=== PATIENT | male | born 1965 | race Caucasian/White ===

== ENCOUNTER 2017-07-03 09:39 | Day surgery (SDC) | payer MEDICAID ==
--- NOTE | 2017-07-01 13:26 | HP ---
HISTORY OF PRESENT ILLNESS: The patient is a 52 year-old iron deficiency anemia, some dark stools, no prior colonoscopy, anemia, and he is up for lower endoscopy to rule out upper and lower GI source. PAST MEDICAL HISTORY: Denies any chronic illnesses although he has had some hypertension. MEDICATIONS: Celexa, Lunesta, Lyrica, iron, high blood pressure medication as well as BuSpar. PAST SURGICAL HISTORY: He has had hernia surgery x2 in the past. FAMILY HISTORY: Cancer and hypertension. ALLERGIES: No known drug allergies. SOCIAL HISTORY: A pack a day smoker. Denies alcohol abuse. REVIEW OF SYSTEMS: Twelve systems reviewed. No chest pain or palpitations. Other systems negative or noncontributory as noted above per admission questionnaire. PHYSICAL EXAMINATION: GENERAL: No acute distress. HEENT: Sclerae nonicteric. NECK: No JVD. CHEST: Equal excursions, nonlabored breathing. CARDIOVASCULAR: Regular rhythm. ABDOMEN: Soft, no peritoneal signs. EXTREMITIES: No significant edema. NEURO: Alert, moving extremities symmetrically, no gross motor deficits noted. IMPRESSION: Iron deficiency anemia unclear etiology, rule out upper or lower GI source. [place] the patient needs EGD, colonoscopy, further evaluation. He was shown the risk sheet, explained the procedure in detail not limited to bleeding, infection, small risk of bowel injury, perforation, possibly requiring open procedure, small risk of missed or non-diagnosis, or incomplete exam possibly requiring barium enema or other studies or procedures. General risk of sedation or anesthesia, general risk of bowel prep, postop risk of nausea or cramping, but not limited to. He understands, agrees to the plan of procedure. We will proceed with outpatient EGD, colonoscopy.
[~2017-07-03 09:39] MED LIST: Lactated Ringers 1,000 ML IV ONE; Lactated Ringers 1,000 ML IV SCH
[2017-07-03] MEDS ORDERED: Ketamine HCl 50 MG/ML IV ONE (09:40)
[2017-07-03] MEDS ORDERED: DIPRIVAN 200 MG/20 ML IV ONE (09:40)
[2017-07-03] MEDS ORDERED: Lactated Ringers 1,000 ML IV ONE (11:21)
[2017-07-03 12:17] VITALS: BP 151/76; PULSE 64; O2SAT 95
--- NOTE | 2017-07-03 13:33 | OP ---
SURGERY DATE/TIME: 07/03/2017 1011 PREOPERATIVE DIAGNOSES: Anemia unclear etiology. POSTOPERATIVE DIAGNOSES: 1) Erosive gastritis. 2) Hiatal hernia. 3) Distal descending colon polyp. 4) Small raised lesion sigmoid and rectum. 5) Diverticulosis. 6) Internal and external hemorrhoids. PROCEDURES: 1) EGD with cold biopsy of the antrum to evaluate for Helicobacter pylori. 2) Cold biopsy mid gastric body inflammation, enlarging of erosive gastritis. 3) Colonoscopy to terminal ileum. 4) Retrograde ileoscopy. 5) Hot snare polypectomy descending colon polyp with ink spot tattooing of location distal descending colon versus proximal sigmoid colon marked with ink spot tattooing, removed with hot snare polypectomy. 6) Hot biopsy removal of small raised lesion sigmoid colon. 7) Hot biopsy removal of small raised rectal lesion versus hyperplastic lesion, path pending. SURGEON: Dr. Boni Corcoran. ANESTHESIA: MAC. ESTIMATED BLOOD LOSS: Minimal. INDICATIONS: As noted above. Risks and benefits explained in detail and not limited to and consent obtained. DESCRIPTION OF PROCEDURE AND FINDINGS: The patient is taken to the operating room. After official time out and no disagreement with planned procedure and once anesthesia was available as he was giving epidural in another room, after available MAC anesthesia introduced. Bite block positioned. Video gastroscope easily passed down the esophagus through the patent pylorus to the junction of the second and third portion of the duodenum. On withdrawal of the scope the duodenum and duodenal bulb grossly unremarkable. Back in the stomach he had some mild erosive gastritis in the antral area. Cold biopsy taken to evaluate for Helicobacter pylori. On retroflex he did have a sliding hiatal hernia. The scope was straightened and in mid body of the stomach there was a deeper erosive gastritis with some petechial hemorrhage there. Whether this had been more severe and etiology of anemia unclear or not there is no eveline deep ulcer but definitely a deep linear erosive gastritis with some petechial hemorrhage. Cold biopsy taken of margin of this for further evaluation. Otherwise there were no signs of any obvious other masses, polyps or any other mucosal lesions other than gastritis other than hiatal hernia. The scope pulled back. Gastroesophageal junction noted to be about 40 cm or so. Z-line was fairly crisp. The remainder of the esophagus grossly unremarkable. The scope is withdrawn. The patient tolerated the procedure well. There were no immediate complications. Attention is then turned to colonoscopy. A digital rectal exam did not reveal any rectal masses. He did have some internal and external hemorrhoids. Video colonoscope inserted and passed up through the tortuous sigmoid, descending, transverse colon. Prep overall was somewhat poor limiting the exam. The scope was able to be passed around the transverse colon, ascending colon to the cecum and up into the ileum. Retrograde ileoscopy performed. Terminal ileum grossly unremarkable. No signs of inflammatory bowel disease. No signs of any active bleeding. The scope pulled back into the cecum, slowly and carefully withdrawn. Prep overall was somewhat limited particularly in the right colon and throughout the colon with some semisolid, liquidy and solid stool limiting the exam this was suction irrigated as well as possible but did limit the exam slightly. On withdrawal of the scope there were no signs of any large polyps, masses or obstructing lesions in the right colon. He did have some diverticulosis. He did have 4 to 5 mm polyp in the distal descending colon versus proximal sigmoid colon this was removed with hot snare polypectomy with very brief bursts of cautery. There was some ooze at the base that were watched for a few seconds and appeared to have good hemostasis. Appeared to be quite viable base. As this was a slightly flat polyp ink spot tattooing of location was accomplished with some ink spot tattoo. A 1 cc injected. Good hemostasis noted. The scope pulled back to the sigmoid colon. Small raised lesion versus early hyperplastic lesion versus hyperplasia of the mucosa was biopsied with hot biopsy forceps and brief bursts of cautery. Good hemostasis noted. Another small raised lesion in the rectum was also removed with hot biopsy forceps with brief bursts of cautery. Good hemostasis noted. Otherwise he had some internal and external hemorrhoids. There were no signs of any large polyps, masses or obstructing lesions. No signs of any active bleeding other than the small amount from petechial hemorrhage from the erosive gastritis. Whether this was the cause of his anemia or some other unknown etiology either way no other active bleeding at this point. It was felt that he should continue his proton pump inhibitor. Will await the biopsy results. Findings discussed with the family out in the waiting area. I will see him back in the office next week. Otherwise he is to avoid any aspirin, Plavix, nonsteroidal or any other thinners for seven days at least in the meantime.
== END 2017-07-03 12:27 | disposition home or self-care (01) ==
LOC: SDC 09:39
PROVIDERS: ATTEND Surgery
PROC: 0DB78ZX Excision of Stomach, Pylorus, Via Natural or Artificial Opening Endoscopic, Diagnostic (ICD-10-PCS; principal; 2017-07-03)
PROC: 0DB68ZX Excision of Stomach, Via Natural or Artificial Opening Endoscopic, Diagnostic (ICD-10-PCS; 2017-07-03)
PROC: 0DJD8ZZ Inspection of Lower Intestinal Tract, Via Natural or Artificial Opening Endoscopic (ICD-10-PCS; 2017-07-03)
PROC: 0DBM8ZX Excision of Descending Colon, Via Natural or Artificial Opening Endoscopic, Diagnostic (ICD-10-PCS; 2017-07-03)
PROC: 0DBN8ZX Excision of Sigmoid Colon, Via Natural or Artificial Opening Endoscopic, Diagnostic (ICD-10-PCS; 2017-07-03)
PROC: 3E0H8GC Introduction of Other Therapeutic Substance into Lower GI, Via Natural or Artificial Opening Endoscopic (ICD-10-PCS; 2017-07-03)
PROC: 0DBN8ZX Excision of Sigmoid Colon, Via Natural or Artificial Opening Endoscopic, Diagnostic (ICD-10-PCS; 2017-07-03)
PROC: 0DBP8ZX Excision of Rectum, Via Natural or Artificial Opening Endoscopic, Diagnostic (ICD-10-PCS; 2017-07-03)
DX: K29.00 Acute gastritis without bleeding (principal); D64.9 Anemia, unspecified; K44.9 Diaphragmatic hernia without obstruction or gangrene; D12.4 Benign neoplasm of descending colon; K63.9 Disease of intestine, unspecified; K57.90 Diverticulosis of intestine, part unspecified, without perforation or abscess without bleeding; K64.4 Residual hemorrhoidal skin tags; K64.8 Other hemorrhoids; I10 Essential (primary) hypertension; Z79.899 Other long term (current) drug therapy; Z80.9 Family history of malignant neoplasm, unspecified
CPT/HCPCS: 00740; 00810; 36415; J2704